=== PATIENT | female | born 1980 | race Caucasian/White ===

== ENCOUNTER 2016-12-28 22:05 | Emergency (ER) | payer MEDICARE, OTHER ==
[~2016-12-28] VITALS: Ht 162.6 cm; Wt 93.0 kg
[~2016-12-28 22:05] MED LIST: AMOXICILLIN500 MG PO; ANTI-ITCH28 G1 TOP; CEPACOL SORE T1 EAC5 MM; DIPHENHYDRAMINE25 M1 PO; DIPHENHYDRAMINE25 MG PO; FLUOXETINE HCL10 MG PO; IBUPROFEN400 MG PO; KEFLEX500 MG PO; LEVOTHYROXINE125 MCG PO; NAPROXEN500 MG PO; NASACORT AQ16.5 GM NS; NORCO 5-325 TA1 EACH PO; ROBITUSSIN100 MG/5 M PO; SEPTRA DS TABL1 EACH PO; TRIAMCINOLONE A15 GM TOP; TYLENOL WITH C1 EACH PO; TYLENOL325 MG PO; ZYRTEC-D TABLE1 EACH PO
[2016-12-28] MEDS ORDERED: NORTRIPTYLINE H10 MG PO (22:40)
[2016-12-28] MEDS ORDERED: GABAPENTIN100 MG PO (22:41)
[2016-12-28] MEDS ORDERED: CIPRODEX OTIC7.5 ML AD (22:41)
[2016-12-29] MEDS ORDERED: ZOFRAN ODT4 MG PO (00:25)
== END 2016-12-29 00:37 | disposition home or self-care (01) ==
LOC: ED 22:05
DX: K29.70 Gastritis, unspecified, without bleeding (principal); E03.9 Hypothyroidism, unspecified; Z87.891 Personal history of nicotine dependence; Z79.899 Other long term (current) drug therapy; Z79.2 Long term (current) use of antibiotics
CPT/HCPCS: 36415; 80053; 81001; 84703; 85025; 96361; 96374; 96375; 99283; J2405; J7040

== ENCOUNTER 2017-02-08 02:09 | Emergency (ER) | payer MEDICARE, OTHER ==
[~2017-02-08] VITALS: Ht 162.6 cm; Wt 93.0 kg
[~2017-02-08 02:09] MED LIST changes: +CIPRODEX OTIC7.5 ML AD; +GABAPENTIN100 MG PO; +NORTRIPTYLINE H10 MG PO; +ZOFRAN ODT4 MG PO
[2017-02-08] MEDS ORDERED: PROTONIX40 MG PO (02:36)
== END 2017-02-08 02:45 | disposition home or self-care (01) ==
LOC: ED 02:09
DX: K29.70 Gastritis, unspecified, without bleeding (principal); E66.9 Obesity, unspecified; E03.9 Hypothyroidism, unspecified; Z79.899 Other long term (current) drug therapy
CPT/HCPCS: 99283

== ENCOUNTER 2018-08-01 23:17 | Emergency (ER) | payer MEDICARE, OTHER ==
[~2018-08-01] VITALS: Ht 162.6 cm; Wt 93.0 kg
[~2018-08-01 23:17] MED LIST changes: +PROTONIX40 MG PO
[2018-08-01] MEDS ORDERED: AMITRIPTYLINE H25 MG PO (23:37)
[2018-08-01] MEDS ORDERED: LISINOPRIL20 MG PO (23:38)
[2018-08-01] MEDS ORDERED: BUSPIRONE HCL5 MG PO (23:38)
[2018-08-01] MEDS ORDERED: HYDROCHLOROTHIA25 MG PO (23:38)
[2018-08-01] MEDS ORDERED: FLUTICASONE PRO16 GM NAS (23:38)
[2018-08-01] MEDS ORDERED: SERTRALINE HCL50 MG PO (23:38)
== END 2018-08-02 00:06 | disposition home or self-care (01) ==
LOC: ED 23:17
DX: H60.91 Unspecified otitis externa, right ear (principal); E03.9 Hypothyroidism, unspecified; E66.9 Obesity, unspecified; Z79.899 Other long term (current) drug therapy; Z87.891 Personal history of nicotine dependence
CPT/HCPCS: 99282

== ENCOUNTER 2018-08-03 07:14 | Emergency (ER) | payer MEDICARE, OTHER ==
[~2018-08-03] VITALS: Ht 162.6 cm; Wt 93.0 kg
[~2018-08-03 07:14] MED LIST changes: +AMITRIPTYLINE H25 MG PO; +BUSPIRONE HCL5 MG PO; +FLUTICASONE PRO16 GM NAS; +HYDROCHLOROTHIA25 MG PO; +LISINOPRIL20 MG PO; +SERTRALINE HCL50 MG PO
--- OUTSIDE RECORDS SUMMARY | 2018-08-03 07:16 | XMS ---
PreManage Notification: LACIE CHAWLA Security Director Design Events No recent Security Events currently on file CRITERIA MET - [facility] - 2 Visits in 30 Days CARE PROVIDERS There are no care providers on record at this time. Cassie has no Care Guidelines for this patient. Ira VISIT COUNT (12 MO.) [address] [facility] [address] TOTAL 2 NOTE: Visits indicate total known visits. ED/C VISIT TRACKING (12 MO.) 08/03/2018 07:14 [facility] [place] TYPE: Emergency COMPLAINT: - BLOODY STOOL 08/01/2018 23:18 [facility] [place] TYPE: Emergency COMPLAINT: - POSS EAR INFECTION INPATIENT VISIT TRACKING (12 MO.) No inpatient visits to display in this time frame [email or web address]
== END 2018-08-03 13:11 | disposition home or self-care (01) ==
LOC: ED 07:14
DX: K62.5 Hemorrhage of anus and rectum (principal); E03.9 Hypothyroidism, unspecified; E66.9 Obesity, unspecified; Z87.891 Personal history of nicotine dependence; Z79.899 Other long term (current) drug therapy
CPT/HCPCS: 36415; 80053; 81001; 85025; 96360; 99284-25; J7030

== ENCOUNTER 2018-09-29 05:45 | Day surgery (SDC) | payer MEDICARE, OTHER ==
[~2018-09-29] VITALS: Ht 162.6 cm; Wt 107.0 kg
[~2018-09-29 05:45] MED LIST changes: +ALLEGRA ALLERG180 MG PO; +VITAMIN D35000 UNIT PO
[2018-09-29] MEDS ORDERED: XANAX1 MG PO (06:02)
--- NOTE | 2018-09-29 08:17 | NUR ---
09/29/18 0817 Zoie Choi 0811 PT TO PACU ASLEEP O2 PLACED VIA NASAL CANNULA AT 2L.
--- NOTE | 2018-09-30 09:04 | OR ---
[facility] [address], [place] [address] Signed DATE OF OPERATION: 09/29/2018 SURGEON: Jayme Cesar MD PREOPERATIVE DIAGNOSES: 1. Gastroesophageal reflux disease. 2. Generalized abdominal pain with nausea. 3. Alternating constipation and diarrhea. 4. Rectal bleeding. POSTOPERATIVE DIAGNOSES: 1. Small hiatal hernia. 2. Mild gastritis. 3. A 4 mm polyp at 110 cm. 4. A 3 mm polyps x3 at 15 cm (rectum). PROCEDURE: 1. EGD with CLOtest and biopsies of the antrum and duodenum. 2. Colonoscopy with hot biopsy as well as random cold biopsies x2. ESTIMATED BLOOD LOSS: None. INDICATIONS: Anton is a 38-year-old female, who was asked to see me for upper and lower endoscopy. She does suffer with cerebral palsy and multiple surgeries on her legs. Consequently she does use a four wheeled walker. She is disabled and her roommate does help her. She has been having trouble with acid reflux for many years. She also has alternating constipation and diarrhea. She has had generalized abdominal pain with nausea. She has also seen some rectal bleeding. She tells me there is no family history of colon cancer or polyps. No inflammatory bowel disease in the family. I gave her a booklet on upper and lower endoscopy. We looked at those together along with the risks including, but not limited to gas bloating, crampy abdominal pain, bleeding, perforation, requiring surgery, and missed diagnosis. We also discussed the need for IV conscious sedation. Given her very full face thick neck and her medical issues, we asked that an anesthesia provider help us with increased monitoring sedation with propofol. That proved to be a sanchez decision that she did need some airway control during the procedure. In addition, she has jewelry through her tongue and she was not able to remove it. PROCEDURE NOTE: Electronically Signed By: JAYME CESAR MD 09/30/18 0904 PATIENT NAME: ANTON CHAWLA OPERATIVE REPORT DATE OF : 84 REPORT #: [id number] PHYSICIAN: JAYME CESAR MD PCP: CURTIS PAT MD REPORT IS CONFIDENTIAL AND NOT TO BE RELEASED WITHOUT AUTHORIZATION [facility] [address] [place], [place] [address] Signed Anton was taken into the endoscopy suite and placed in the supine semi-recumbent position. The posterior oropharynx was anesthetized with lidocaine spray. A bite block was utilized for the case along with two retainers to protect the upper and lower teeth. She was given propofol by our nurse boiler shop mechanic for sedation. The adult gastroscope was introduced and advanced all the way out into the third portion of the duodenum under direct visualization of camera without difficulty. The duodenum and pyloric channel were unremarkable. We did take a biopsy of the duodenum because the history of diarrhea. In the stomach, she had very mild erythematous changes that are present. We went ahead and took a biopsy from antrum for CLOtest as well as pathologic review. Upon retroflexion of scope, she does have a small hiatal hernia. There were no gastric or esophageal varices. No ulcerations. The scope was withdrawn up to the GE junction, which was compliant without stricture. She does have minimal disruption to her Z-line. There was no Finley's mucosa, no distal esophagitis. The middle and upper esophagus were unremarkable. After this, the gas was suctioned out and the gastroscope removed. Anton tolerated the upper endoscopy quite well. Anton was then rotated into the left lateral decubitus position. She was maintained on IV sedation with propofol per our nurse boiler shop mechanic. A digital rectal exam was performed and this was unremarkable. Really not much in the way of any hemorrhoid tissue. She had good sphincter tone. The adult colonoscope was introduced and advanced all around into the cecum under direct visualization camera without difficulty. Her prep was good. The scope was slowly withdrawn. We took pictures throughout for photodocumentation. She had several small polyps removed with the help of hot biopsy forceps. We also took a couple of random biopsies in the colon because of the history of diarrhea. We saw no inflammatory changes. No diverticulosis. Upon retroflexion of scope in the rectum really not much of anything around the anal canal. After this, the gas was suctioned out. The colonoscope removed. Anton tolerated the lower endoscopy quite well. RECOMMENDATIONS: I will see Anton back in my office in 7 to 14 days to review her results. Jayme Cesar MD ALB/MODL /[id number] Electronically Signed By: JAYME CEASR MD 09/30/18 0904 PATIENT NAME: ANTON CHAWLA OPERATIVE REPORT DATE OF : 84 REPORT #: [id number] PHYSICIAN: JAYME CESAR MD PCP: CURTIS PAT MD REPORT IS CONFIDENTIAL AND NOT TO BE RELEASED WITHOUT AUTHORIZATION [facility] [address] [facility] [place], [place] [address] Signed cc: MD Jayme Velazquez MD Copies: JAYME CESAR MD ~ Electronically Signed By: JAYME CESAR MD 09/30/18 0904 PATIENT NAME: ANTON CHAWLA OPERATIVE REPORT DATE OF : 84 REPORT #: [id number] PHYSICIAN: JAYME CESAR MD PCP: CURTIS PAT MD REPORT IS CONFIDENTIAL AND NOT TO BE RELEASED WITHOUT AUTHORIZATION
== END 2018-09-29 08:52 | disposition home or self-care (01) ==
LOC: DS 05:45 → OPS 05:45 → DS 06:45 → OPS 08:52
PROVIDERS: Colon & Rectal Surgery
PROC: 0DB78ZX Excision of Stomach, Pylorus, Via Natural or Artificial Opening Endoscopic, Diagnostic (ICD-10-PCS; 2018-09-29)
PROC: 0DBE8ZX Excision of Large Intestine, Via Natural or Artificial Opening Endoscopic, Diagnostic (ICD-10-PCS; principal; 2018-09-29 06:45)
PROC: 0DB98ZX Excision of Duodenum, Via Natural or Artificial Opening Endoscopic, Diagnostic (ICD-10-PCS; 2018-09-29 06:45)
DX: K63.5 Polyp of colon (principal); K62.1 Rectal polyp; K29.50 Unspecified chronic gastritis without bleeding; K44.9 Diaphragmatic hernia without obstruction or gangrene; E66.9 Obesity, unspecified; Z79.899 Other long term (current) drug therapy; Z68.41 Body mass index [BMI] 40.0-44.9, adult
CPT/HCPCS: 86677; J2704; J7120

== ENCOUNTER 2020-06-12 20:13 | Emergency (ER) | payer MEDICARE, OTHER ==
[~2020-06-12] VITALS: Ht 162.6 cm; Wt 110.7 kg
[~2020-06-12 20:13] MED LIST changes: +XANAX1 MG PO
[2020-06-12] MEDS ORDERED: VENTOLIN HFA18 GM INH (21:05)
[2020-06-12] MEDS ORDERED: PENICILLIN V P500 MG PO (23:26)
== END 2020-06-12 23:41 | disposition home or self-care (01) ==
LOC: ED 20:13
DX: K02.9 Dental caries, unspecified (principal); E66.9 Obesity, unspecified; E03.9 Hypothyroidism, unspecified; Z87.891 Personal history of nicotine dependence; Z79.899 Other long term (current) drug therapy
CPT/HCPCS: 99282

== ENCOUNTER 2021-01-03 02:54 | Emergency (ER) | payer MEDICARE, OTHER ==
[~2021-01-03] VITALS: Ht 162.6 cm; Wt 110.7 kg
[~2021-01-03 02:54] MED LIST changes: +PENICILLIN V P500 MG PO; +VENTOLIN HFA18 GM INH
== END 2021-01-03 03:43 | disposition home or self-care (01) ==
LOC: ED 02:54
DX: S76.012A Strain of muscle, fascia and tendon of left hip, initial encounter (principal); E66.9 Obesity, unspecified; E03.9 Hypothyroidism, unspecified; Z87.891 Personal history of nicotine dependence; Z79.899 Other long term (current) drug therapy; X58.XXXA Exposure to other specified factors, initial encounter
CPT/HCPCS: 96372; 99283; J1885

== ENCOUNTER 2023-06-25 10:58 | Emergency (ER) | payer MEDICARE, OTHER ==
[~2023-06-25] VITALS: Ht 162.6 cm; Wt 92.1 kg
[2023-06-25] MEDS ORDERED: HYDROCODON-ACE1 EA10 PO (13:27)
[2023-06-25] MEDS ORDERED: PENICILLIN V P500 MG PO (13:27)
[2023-06-25 13:42] VITALS: BP 145/99
== END 2023-06-25 13:42 | disposition home or self-care (01) ==
LOC: ED 10:58
DX: K04.7 Periapical abscess without sinus (principal); K02.9 Dental caries, unspecified
CPT/HCPCS: 99282

== ENCOUNTER 2024-04-09 15:26 | Emergency (ER) | payer MEDICARE, OTHER ==
[~2024-04-09] VITALS: Ht 162.6 cm; Wt 100.7 kg
[~2024-04-09 15:26] MED LIST changes: +HYDROCODON-ACE1 EA10 PO
[2024-04-09] MEDS ORDERED: ondansetron HCL 4 MG/2 ML VIAL IV PRN (18:00)
[2024-04-09] MEDS ORDERED: KETOROLAC TROMETHAMINE 15 MG/ML VIAL IV ONE ×2 (18:00→18:30)
[2024-04-09 18:11] LABS: BILIRUBIN, URINE NEGATIVE (negative); BLOOD/HGB, URINE MODERATE (Negative); KETONE, URINE NEGATIVE (Negative); LEUK ESTERASE, URINE MODERATE (negative); NITRITE, URINE NEGATIVE (negative); PH, URINE 5.5 (5-7)
[2024-04-09 18:19] LABS: BACTERIA, URINE 1+ /hpf (negative); CASTS, URINE NONE SEEN \\lpf; COLLECTION TYPE, URINE CLEAN CATCH; CRYSTALS, URINE NONE SEEN (0-1+); EPITHELIAL CELLS, URINE SQUAMOUS 1+ /lpf (0-1+); RED BLOOD CELLS, URINE 0-1 /hpf (0-5); REFLEX CULTURE, URINE Yes (No); WHITE BLOOD CELLS, URINE 41-50 /HPF (0-5)
[2024-04-09 18:30] LABS: BASOPHILS 0.6 % (0-2); HEMATOCRIT 35.4 % (35.0-50.0); HEMOGLOBIN 11.7 g/dL (12.0-18.0); LYMPHOCYTES 15.5 % (24-44); MCH 27.3 (27-36); MCHC 33.1 g/dl (30-36); MCV 82.5 fl (81-99); MONOCYTES 5.4 % (0-12); NEUTROPHILS 77.5 % (39-80); PLATELET COUNT 354 K/uL (140-440); RBC 4.29 M/ul (4.3-5.7); RDW 14.2 (10.5-15.0)
[2024-04-09] MEDS ORDERED: SODIUM CHLORIDE 0.9% 1,000 ML IV PRN (18:45)
[2024-04-09 18:46] LABS: ALBUMIN 3.3 g/dL (3.4-5.0); ALBUMIN/GLOBULIN RATIO 0.75 (1.1-2.4); ANION GAP 13.9 (7-21); BILIRUBIN, TOTAL 0.3 ng/dL (0.2-1.0); BUN/CREATININE RATIO 11.65 (6.0-28.6); CALCIUM 9.3 mg/dL (8.5-10.1); CREATININE, SERUM 1.03 mg/dL (0.55-1.02); POTASSIUM 3.9 mmol/L (3.5-5.1); PROTEIN, TOTAL 7.7 g/dL (6.4-8.2)
[2024-04-09] MEDS ORDERED: CEFDINIR300 MG PO (19:50)
[2024-04-09] MEDS ORDERED: TRAMADOL HCL50 MG PO (19:50)
[2024-04-09] MEDS ORDERED: ONDANSETRON ODT8 MG PO (19:50)
[2024-04-09] MEDS ORDERED: CEFTRIAXONE/SODIUM CHLORIDE 2 GM/100 ML PIGGYBACK IV ONE (20:00)
[2024-04-09] MEDS ORDERED: ONDANSETRON 4 MG HOME.PACK SL ONE (20:15)
[2024-04-09] MEDS ORDERED: CEFDINIR 300 MG HOME.PACK PO ONE (20:15)
[2024-04-09] MEDS ORDERED: TRAMADOL HCL 50 MG HOME.PACK PO ONE (20:15)
[2024-04-09 20:36] VITALS: BP 114/57
== END 2024-04-09 20:41 | disposition home or self-care (01) ==
LOC: ED 15:26
PROVIDERS: Emergency Medicine
DX: N39.0 Urinary tract infection, site not specified (principal); E03.9 Hypothyroidism, unspecified; J45.909 Unspecified asthma, uncomplicated; E66.9 Obesity, unspecified; Z68.38 Body mass index [BMI] 38.0-38.9, adult; Z87.891 Personal history of nicotine dependence; Z79.890 Hormone replacement therapy; Z79.899 Other long term (current) drug therapy
CPT/HCPCS: 36415; 80053; 81001; 84703; 85025; 87077; 87088; 87186; 96365; 96375; 99284-25; A9270; J0696; J1885; J2405; J7030